=== PATIENT | male | born 1965 | race Two or more races ===

== ENCOUNTER → 2020-10-21 | Outpatient (CLI) | payer BC | END | disposition home or self-care (01) | LOC: CFH 09:34 | PROVIDERS: ATTEND Registered Nurse | DX: M89.8X1 Other specified disorders of bone, shoulder (principal); E78.2 Mixed hyperlipidemia; I10 Essential (primary) hypertension; I45.10 Unspecified right bundle-branch block; R06.02 Shortness of breath; R07.89 Other chest pain; R19.7 Diarrhea, unspecified ==

== ENCOUNTER 2020-11-13 06:47 | Outpatient (CLI) | payer BC | END 2020-11-13 23:59 | disposition home or self-care (01) | LOC: CVU 06:47 | PROVIDERS: ATTEND Registered Nurse | DX: I36.1 Nonrheumatic tricuspid (valve) insufficiency (principal); I45.10 Unspecified right bundle-branch block; R06.02 Shortness of breath; R07.89 Other chest pain | CPT/HCPCS: 93306 ==

== ENCOUNTER → 2021-02-26 | Outpatient (CLI) | payer BC ==
[~2021-02-26] MED LIST: OMNIPAQUE 350 MG/ML, 100ML BOTTLE ONE
== END | disposition home or self-care (01) ==
LOC: RAD 16:34
PROVIDERS: ATTEND Family Medicine
DX: K40.30 Unilateral inguinal hernia, with obstruction, without gangrene, not specified as recurrent (principal)
CPT/HCPCS: 74177; Q9967